=== PATIENT | male | born 1950 | race American Indian/Alaskan Native ===

== ENCOUNTER 2016-08-05 11:32 | Emergency (ER) | payer MEDICARE ==
[2016-08-05 11:38] VITALS: BP 146/86
--- NOTE | 2016-08-05 11:46 | Emergency Department Report ---
Chief Complaint: Nosebleed Stated Complaint: SEVERE NOSE BLEEDS Time Seen by Provider: 08/05/16 11:41 - HPI History of Present Illness: 66-year-old male presents today with nosebleed since 3 days with profuse bleeding and clots. Positive for history of nosebleeds. Patient states he is currently taking aspirin 81 mg. Denies fever, chills, nausea, vomiting, chest pain, shortness of breath, abdominal pain. - ROS Review of Systems: Per HPI - Exam Vital Signs: Vital Signs 08/05/16 11:35 Temperature 98.2 F Pulse Rate 91 H Respiratory 18 Rate Blood Pressure 146/86 O2 Sat by Pulse 99 Oximetry Physical Exam: General: 66-year-old male in no acute distress. Well-developed, well-nourished. Nose: Blood noted in the right nostril. Throat: No erythema, swelling or bleeding. CV: Regular rate and rhythm. Lungs: Clear to auscultation bilaterally. MSE screening note: Focused history and physical exam performed. Due to findings the following was ordered: ED Disposition for MSE Condition: Stable
[2016-08-05 12:02] LABS: Basophils % (Auto) 0.6 % (0.0-1.8); Eosinophils % (Auto) 1.7 % (0.0-4.3); Hemoglobin 12.9 gm/dl (11.8-15.2); Mean Corpuscular HGB Conc 32 % (32-34); Mean Corpuscular Hemoglobin 28 pg (28-32); Mean Corpuscular Volume 90 fl (84-94); Platelet Count 186 K/mm3 (140-440); Red Blood Count 4.57 M/mm3 (3.65-5.03); Red Cell Distribution Width 12.7 % (13.2-15.2); White Blood Count 10.9 K/mm3 (4.5-11.0)
[2016-08-05 12:11] LABS: INR 0.96 (0.87-1.13)
[2016-08-05 12:12] LABS: Partial Thromboplastin Time 27.4 Sec. (24.2-36.6)
[2016-08-05 12:14] LABS: Anion Gap 20 mmol/L; BUN/Creatinine Ratio 12.85; Blood Urea Nitrogen 18 mg/dL (9-20); Calcium 9.1 mg/dL (8.4-10.2); Carbon Dioxide 25 mmol/L (22-30); Glucose 261 mg/dL (75-100); Potassium 4.8 mmol/L (3.6-5.0); Sodium 140 mmol/L (137-145)
[2016-08-05] MEDS ORDERED: AFRIN NS ONE (13:18)
--- NOTE | 2016-08-05 13:54 | Emergency Department Report ---
ED General Adult HPI - General Chief complaint: Nosebleed Stated complaint: SEVERE NOSE BLEEDS Time Seen by Provider: 08/05/16 11:41 Source: patient Mode of arrival: Ambulatory Limitations: No Limitations - History of Present Illness Initial comments: 66-year-old male currently taking aspirin presents to the ED complaining about nosebleed that he gets off-and-on. States now the upper lip feels raw and sore from blowing too much. Patient also complains about neck pain that he has been having off-and-on for a month with intermittent numbness and tingling to the right arm. Denies injury. States full range of motion of the neck. - Related Data Home Medications Medication Instructions Recorded Confirmed Last Taken glipiZIDE [glipiZIDE XL] 10 mg PO QDAY 07/24/13 01/21/14 01/21/14 Hydrochlorothiazide [Hctz] 12.5 mg PO QDAY 01/21/14 01/21/14 01/21/14 Lisinopril [Zestril] 10 mg PO BID 01/21/14 01/21/14 01/21/14 Pioglitazone (Nf) [Actos] 30 mg PO QDAY 01/21/14 01/21/14 01/21/14 metFORMIN [Glucophage] 500 mg PO BID 01/21/14 01/21/14 01/21/14 Previous Rx's Medication Instructions Recorded Last Taken Type metFORMIN [Glucophage] 1,000 mg PO BID #120 tablet 01/21/14 Unknown Rx Bacitracin [Bacitracin Ophth] 3.5 gm OP BID #1 tube 08/05/16 Unknown Rx Cyclobenzaprine [Flexeril] 10 mg PO TID PRN #10 tablet 08/05/16 Unknown Rx Allergies Allergy/AdvReac Type Severity Reaction Status Date / Time No Known Allergies Allergy Unverified 07/14/13 09:50 ED Review of Systems ROS: Stated complaint: SEVERE NOSE BLEEDS Other details as noted in HPI Constitutional: denies: chills, fever Eyes: denies: eye pain, eye discharge, vision change ENT: epistaxis. denies: ear pain, throat pain Respiratory: denies: cough, shortness of breath, wheezing Cardiovascular: denies: chest pain, palpitations Endocrine: no symptoms reported Gastrointestinal: denies: abdominal pain, nausea, diarrhea Genitourinary: denies: urgency, dysuria Musculoskeletal: myalgia. denies: back pain, joint swelling, arthralgia Skin: denies: rash, lesions Neurological: denies: headache, weakness, paresthesias Psychiatric: denies: anxiety, depression Hematological/Lymphatic: denies: easy bleeding, easy bruising ED Past Medical Hx - Past Medical History Hx Hypertension: Yes (takes lisinopril) Hx Heart Attack/AMI: No Hx Congestive Heart Failure: No Hx Diabetes: Yes Hx Deep Vein Thrombosis: No Hx Liver Disease: No Hx Renal Disease: No Hx Kidney Stones: Yes Hx Asthma: No Hx COPD: No - Surgical History Hx Coronary Stent: No Hx Pacemaker: No Hx Internal Defibrillator: No Hx Cholecystectomy: Yes - Social History Smoking Status: Never Smoker Substance Use Type: None - Medications Home Medications: Home Medications Medication Instructions Recorded Confirmed Last Taken Type glipiZIDE [glipiZIDE XL] 10 mg PO QDAY 07/24/13 01/21/14 01/21/14 History Hydrochlorothiazide [Hctz] 12.5 mg PO QDAY 01/21/14 01/21/14 01/21/14 History Lisinopril [Zestril] 10 mg PO BID 01/21/14 01/21/14 01/21/14 History Pioglitazone (Nf) [Actos] 30 mg PO QDAY 01/21/14 01/21/14 01/21/14 History metFORMIN [Glucophage] 1,000 mg PO BID #120 tablet 01/21/14 Unknown Rx metFORMIN [Glucophage] 500 mg PO BID 01/21/14 01/21/14 01/21/14 History Bacitracin [Bacitracin Ophth] 3.5 gm OP BID #1 tube 08/05/16 Unknown Rx Cyclobenzaprine [Flexeril] 10 mg PO TID PRN #10 tablet 08/05/16 Unknown Rx ED Physical Exam - General Limitations: No Limitations General appearance: alert, in no apparent distress - Head Head exam: Present: atraumatic, normocephalic - Eye Eye exam: Present: normal appearance - ENT ENT exam: Present: mucous membranes moist, other (slight blood in both nares) - Neck Neck exam: Present: normal inspection, tenderness (right sided paraspinal), full ROM. Absent: meningismus - Respiratory Respiratory exam: Present: normal lung sounds bilaterally. Absent: respiratory distress - Cardiovascular Cardiovascular Exam: Present: regular rate, normal rhythm. Absent: systolic murmur, diastolic murmur, rubs, gallop - GI/Abdominal GI/Abdominal exam: Present: soft, normal bowel sounds - Rectal Rectal exam: Present: deferred - Extremities Exam Extremities exam: Present: normal inspection - Back Exam Back exam: Present: normal inspection - Neurological Exam Neurological exam: Present: alert, oriented X3 - Psychiatric Psychiatric exam: Present: normal affect, normal mood - Skin Skin exam: Present: warm, dry, intact, normal color. Absent: rash ED Course Vital Signs 08/05/16 11:35 Temperature 98.2 F Pulse Rate 91 H Respiratory 18 Rate Blood Pressure 146/86 O2 Sat by Pulse 99 Oximetry ED Medical Decision Making - Lab Data Result diagrams: 08/05/16 11:45 08/05/16 11:45 Vital Signs 08/05/16 11:35 Temperature 98.2 F Pulse Rate 91 H Respiratory 18 Rate Blood Pressure 146/86 O2 Sat by Pulse 99 Oximetry Laboratory Results - last 24 hr 08/05/16 08/05/16 08/05/16 11:45 11:45 11:45 WBC 10.9 RBC 4.57 Hgb 12.9 Hct 41.0 MCV 90 MCH 28 MCHC 32 RDW 12.7 L Plt Count 186 Lymph % (Auto) 28.3 [place] % (Auto) 7.1 Eos % (Auto) 1.7 Baso % (Auto) 0.6 Lymph # 3.1 [place] # 0.8 Eos # 0.2 Baso # 0.1 Seg Neutrophils % 62.3 Seg Neutrophils # 6.8 PT 12.7 INR 0.96 APTT 27.4 Sodium 140 Potassium 4.8 Chloride 100.0 Carbon Dioxide 25 Anion Gap 20 BUN 18 Creatinine 1.4 Estimated GFR > 60 BUN/Creatinine Ratio 12.85 Glucose 261 H Calcium 9.1 - Medical Decision Making patient in NAD at this time, given afrin and nosebleed has stopped. resting comfortably. VSS for DC. Critical care attestation.: If time is entered above; I have spent that time in minutes in the direct care of this critically ill patient, excluding procedure time. ED Disposition Clinical Impression: Acute anterior epistaxis, Neck pain, Arm paresthesia, right Disposition: DISCHARGED TO HOME OR SELFCARE Is pt being admited?: No Does the pt Need Aspirin: No Condition: Good Instructions: Epistaxis (ED) Prescriptions: Bacitracin [Bacitracin Ophth] 3.5 gm OP BID #1 tube Cyclobenzaprine [Flexeril] 10 mg PO TID PRN #10 tablet PRN Reason: Muscle Spasm Referrals: PRIMARY CARE, [Primary Care Provider] - 3-5 Days Forms: Work/School Release Form(ED) Time of Disposition: 13:54
== END 2016-08-05 14:00 | disposition home or self-care (01) ==
LOC: ED 11:32
DX: R04.0 Epistaxis (principal); M54.2 Cervicalgia; R20.9 Unspecified disturbances of skin sensation; I10 Essential (primary) hypertension; E11.9 Type 2 diabetes mellitus without complications
CPT/HCPCS: 36415; 80048; 85025; 85610; 85730; 99283

== ENCOUNTER 2019-05-30 15:36 | Emergency (ER) | payer MEDICARE ==
--- NOTE | 2019-05-30 18:44 | Event Note ---
ED Screening Note Date of service: 05/30/19 Time: 18:42 ED Screening Note: Pt sent from [place] for acute pancreatitis shown on CT today lipase was 380 Pt does have all blood work withhim on paper from today; WBCs 8.2 This initial assessment/diagnostic orders/clinical plan/treatment(s) is/are subject to change based on patients health status, clinical progression and re- assessment by fellow clinical providers in the ED. Further treatment and workup at subsequent clinical providers discretion. Patient/guardian urged not to elope from the ED as their condition may be serious if not clinically assessed and managed. Initial orders include: labs
[2019-05-30 19:39] LABS: Basophils % (Auto) 0.5 % (0.0-1.8); Eosinophils # (Auto) 0.1 K/mm3 (0.0-0.4); Eosinophils % (Auto) 1.2 % (0.0-4.3); Hematocrit 42.3 % (35.5-45.6); Hemoglobin 13.8 gm/dl (11.8-15.2); Lymphocytes # (Auto) 2.2 K/mm3 (1.2-5.4); Lymphocytes % (Auto) 27.6 % (13.4-35.0); Mean Corpuscular HGB Conc 33 % (32-34); Mean Corpuscular Volume 86 fl (84-94); Monocytes # (Auto) 0.6 K/mm3 (0.0-0.8); Monocytes % (Auto) 7.5 % (0.0-7.3); Platelet Count 200 K/mm3 (140-440); Red Blood Count 4.91 M/mm3 (3.65-5.03); Red Cell Distribution Width 13.6 % (13.2-15.2)
[2019-05-30 19:54] LABS: Alanine Aminotransferase 13 units/L (7-56); Albumin 3.8 g/dL (3.9-5); BUN/Creatinine Ratio 20; Blood Urea Nitrogen 26 mg/dL (9-20); Calcium 9.7 mg/dL (8.4-10.2); Hemolysis Index 5
--- NOTE | 2019-05-31 00:12 | Emergency Department Report ---
ED Abdominal Pain HPI - General Chief Complaint: Abdominal Pain Stated Complaint: SWOLLEN PANCREAS Time Seen by Provider: 05/30/19 18:41 Source: patient Mode of arrival: Ambulatory Limitations: No Limitations - History of Present Illness MD Complaint: abdominal pain -: Gradual, days(s) (4) Location: epigastric Migration to: no migration Severity scale (0 -10): 3 Quality: aching Consistency: intermittent Improves With: nothing Worsens With: eating Associated Symptoms: nausea, vomiting. denies: diarrhea, fever, chills, constipation, dysuria, hematemesis, hematochezia, melena, hematuria, syncope - Related Data Home Medications Medication Instructions Recorded Confirmed Last Taken glipiZIDE [glipiZIDE XL] 10 mg PO QDAY 07/24/13 01/21/14 01/21/14 Pioglitazone (Nf) [Actos] 30 mg PO QDAY 01/21/14 01/21/14 01/21/14 hydroCHLOROthiazide [Hctz] 12.5 mg PO QDAY 01/21/14 01/21/14 01/21/14 lisinopriL [Zestril] 10 mg PO BID 01/21/14 01/21/14 01/21/14 metFORMIN [Glucophage] 500 mg PO BID 01/21/14 01/21/14 01/21/14 Previous Rx's Medication Instructions Recorded Last Taken Type metFORMIN [Glucophage] 1,000 mg PO BID #120 tablet 01/21/14 Unknown Rx Bacitracin [Bacitracin Ophth] 3.5 gm OP BID #1 tube 08/05/16 Unknown Rx Cyclobenzaprine [Flexeril] 10 mg PO TID PRN #10 tablet 08/05/16 Unknown Rx Ondansetron [Zofran Odt] 4 mg PO Q8HR PRN #12 tab.rapdis 05/31/19 Unknown Rx traMADoL [Ultram 50 MG tab] 50 mg PO Q8HR PRN #6 tablet 05/31/19 Unknown Rx Allergies Allergy/AdvReac Type Severity Reaction Status Date / Time No Known Allergies Allergy Unverified 07/14/13 09:50 ED Review of Systems ROS: Stated complaint: SWOLLEN PANCREAS Other details as noted in HPI Other: GENERAL: No weight change, fatigue, fever, chills, or night sweats SKIN: No changes in skin or hair, no itching, no rashes, no jaundice HEAD: No trauma EYES: No blurriness, tearing, itching, acute visual loss, conjunctival discoloration, or scleral icterus EARS: No hearing loss, tinnitus, vertigo, or earache NOSE: No rhinorrhea, stuffiness, sneezing, itching, or epistaxis MOUTH: No bleeding gums, hoarseness, sore throat, or swelling CARDIAC: No new murmur, chest pain, palpitations, dyspnea on exertion, orthopnea, PND, or edema RESPIRATORY: No shortness of breath, wheeze, cough, sputum production, hemoptysis GI: Abdominal pain, nausea, vomiting. Denies dysphagia, diarrhea, constipation, hematemesis, melena, hematochezia URINARY: No frequency, urgency, polyuria, dysuria, hematuria, or incontinence MUSCULOSKELETAL: No muscle weakness, joint stiffness, decrease in range of motion, redness, swelling NEUROLOGIC: No headache, syncope, loss of sensation, numbness, tingling, tremors, weakness, paralysis, seizures HEMATOLOGIC: No anemia, easy bruising, bleeding, petechiae, or purpura ENDOCRINE: No hot or cold intolerance, sweating, polyuria, polydipsia or, polyphagia no thyroid problems PSYCHIATRIC: No change in mood, no anxiety, no depression ED Past Medical Hx - Past Medical History Previous Medical History?: Yes Hx Hypertension: Yes (takes lisinopril) Hx Heart Attack/AMI: No Hx Congestive Heart Failure: No Hx Diabetes: Yes Hx Deep Vein Thrombosis: No Hx Liver Disease: No Hx Renal Disease: No Hx Kidney Stones: Yes Hx Asthma: No Hx COPD: No - Surgical History Hx Coronary Stent: No Hx Pacemaker: No Hx Internal Defibrillator: No Hx Cholecystectomy: Yes - Social History Smoking Status: Never Smoker Substance Use Type: None - Medications Home Medications: Home Medications Medication Instructions Recorded Confirmed Last Taken Type glipiZIDE [glipiZIDE XL] 10 mg PO QDAY 07/24/13 01/21/14 01/21/14 History Pioglitazone (Nf) [Actos] 30 mg PO QDAY 01/21/14 01/21/14 01/21/14 History hydroCHLOROthiazide [Hctz] 12.5 mg PO QDAY 01/21/14 01/21/14 01/21/14 History lisinopriL [Zestril] 10 mg PO BID 01/21/14 01/21/14 01/21/14 History metFORMIN [Glucophage] 1,000 mg PO BID #120 tablet 01/21/14 Unknown Rx metFORMIN [Glucophage] 500 mg PO BID 01/21/14 01/21/14 01/21/14 History Bacitracin [Bacitracin Ophth] 3.5 gm OP BID #1 tube 08/05/16 Unknown Rx Cyclobenzaprine [Flexeril] 10 mg PO TID PRN #10 tablet 08/05/16 Unknown Rx Ondansetron [Zofran Odt] 4 mg PO Q8HR PRN #12 tab.rapdis 05/31/19 Unknown Rx traMADoL [Ultram 50 MG tab] 50 mg PO Q8HR PRN #6 tablet 05/31/19 Unknown Rx ED Physical Exam - General Limitations: No Limitations - Other Other exam information: GENERAL: Patient in no acute distress HEAD: Normocephalic, atraumatic EYES: PERRLA, EOM intact, no scleral icterus, no conjunctival hemorrhage, visual baeza and acuity wnl NOSE: No tenderness, discharge, sinus tenderness MOUTH: No erythema, bleeding, exudate HEART: Regular rate and rhythm, no murmur, S1-S2 are auscultated, no edema, pulses are symmetric LUNGS: No respiratory distress. Bilateral breath sounds, No tachypnea, No retractions, No wheezing, rales, rhonchi ABDOMEN: Normal bowel sounds, abdomen soft, no tenderness, no rebound, no guarding, no distention, no masses, no CVA tenderness MUSCULOSKELETAL: Normal joint range of motion, no redness, no swelling, no tenderness NEUROLOGIC: GCS 15, Alert and Oriented, Cranial nerves intact, normal sensation, normal strength, no cerebellar deficit, NIHSS 0 SKIN: Skin is warm and dry, no wounds, no rashes ED Course Vital Signs 05/30/19 05/30/19 05/31/19 18:43 23:25 00:00 Temperature 98.7 F 98.6 F Pulse Rate 78 73 74 Respiratory 18 13 18 Rate Blood Pressure 122/79 129/78 Blood Pressure 133/72 [Left] O2 Sat by Pulse 98 99 96 Oximetry ED Medical Decision Making - Lab Data Result diagrams: 05/30/19 19:25 05/30/19 19:25 Laboratory Results - last 24 hr 05/30/19 05/30/19 19:25 19:25 WBC 8.0 RBC 4.91 Hgb 13.8 Hct 42.3 MCV 86 MCH 28 MCHC 33 RDW 13.6 Plt Count 200 Lymph % (Auto) 27.6 [place] % (Auto) 7.5 H Eos % (Auto) 1.2 Baso % (Auto) 0.5 Lymph # 2.2 [place] # 0.6 Eos # 0.1 Baso # 0.0 Seg Neutrophils % 63.2 Seg Neutrophils # 5.0 Sodium 135 L Potassium 5.0 Chloride 97.0 L Carbon Dioxide 21 L Anion Gap 22 BUN 26 H Creatinine 1.3 Estimated GFR > 60 BUN/Creatinine Ratio 20 Glucose 244 H Calcium 9.7 Total Bilirubin 0.80 AST 16 ALT 13 Alkaline Phosphatase 68 Total Protein 8.0 Albumin 3.8 L Albumin/Globulin Ratio 0.9 Lipase 214 H - Medical Decision Making Patient reports he left [place] where he received laboratory and radiological CT abdomen testing concerning for pancreatitis. Paperwork at bedside from [place] shows results from today concerning for pancreatitis. The MDM at [place] reports patient is not a [place] patient currently, and therefore was sent to the ER for further evaluation. Patient in the ER on evaluation denies abdominal pain, or any current nausea/vomiting. Reports his stomach does hurt if he eats. Reports he is keeping fluids down at home and is able to take his blood pressure medicine. Patient offered admission for abdominal pain/n/v but patient declines and reports he prefers to attempt to go home with pain medication and instructions for bland diet bowel rest for pancreatitis. Patient given strict return precautions for worsening symptoms abdominal pain, n/v, fever. Agrees to return if any worsening. Critical care attestation.: If time is entered above; I have spent that time in minutes in the direct care of this critically ill patient, excluding procedure time. ED Disposition Clinical Impression: Acute pancreatitis Qualifiers: Pancreatitis type: unspecified pancreatitis type Acute pancreatitis complication: unspecified Qualified Code(s): K85.90 - Acute pancreatitis without necrosis or infection, unspecified Disposition: - TO HOME OR SELFCARE Is pt being admited?: No Condition: Stable Instructions: Pancreatitis (ED), Diet for Ulcers and Gastritis (ED) Prescriptions: traMADoL [Ultram 50 MG tab] 50 mg PO Q8HR PRN #6 tablet PRN Reason: Pain Ondansetron [Zofran Odt] 4 mg PO Q8HR PRN #12 tab.rapdis PRN Reason: Nausea Referrals: SUSANNE WONG MD [Staff Physician] - 2-3 Days [facility] [Provider Group] - 2-3 Days
[2019-05-31 02:10] VITALS: BP 122/65
== END 2019-05-31 01:25 | disposition home or self-care (01) ==
LOC: ED 15:36
DX: K85.90 Acute pancreatitis without necrosis or infection, unspecified (principal); I10 Essential (primary) hypertension; E11.9 Type 2 diabetes mellitus without complications; Z90.49 Acquired absence of other specified parts of digestive tract; Z79.899 Other long term (current) drug therapy
CPT/HCPCS: 36415; 80053; 83690; 85025